=== PATIENT | female | born 1975 | race Caucasian/White ===

== ENCOUNTER → 2016-04-22 | Outpatient (CLI) | payer OTHER ==
--- NOTE | 2016-04-22 18:16 | US ---
Dear Dr. Hawthorne, Thank you for sending your patient, Ladi Motta, to us for an US and consultation to assess a natomy. As you know, the patient is a 40 y.o. G4, P1021 at 20 weeks and 3 days with an EDC of 09/06/16 based on LMP and 10 week US. Her is complicated by AMA>40 and hypothyroidism on Synthroid 50 mcg daily. Genetic Screening: NIPT and AFP reassuring The patient denies any uterine contractions, vaginal bleeding, or loss of fluid. Today, she is withou t complaints. US FINDINGS: Number of fetuses: 1 Placental location: Anterior, No previa Placental Cord Insertion: Central presentation: Breech Cervix: 4.4 cm, transabdominally MVP: 4.7 cm The adnexa were evaluated. No pathology was seen. Right ovary: Normal Left ovary: Suboptimal heart rate: 143 bpm Measurements: Biparietal diameter: 48 mm, 20 weeks 4 days Head circumference: 181 mm, 20 weeks 4 days Abdominal circumference: 155 mm, 20 weeks 5 days Femur length: 32 mm, 20 weeks 1 days Humerus length: 32 mm, 20 weeks 4 days Transcerebellar diameter: 23 mm, 21 weeks 5 days Average ultrasound age: 20 weeks 4 days Estimated weight: 353 g weight percentile: 45% ANATOMY Supratentorial brain: Normal Cerebral lateral ventricle: 5 mm Posterior fossa: Normal Cisterna magna: 4 mm Nuchal fold: 3.0 mm Lip: Normal Profile: Normal Alveolar Ridge: Suboptimal Spine: -- Cervical: Normal -- Thoracic: Normal -- Lumbar: Normal -- Sacral: Suboptimal Heart: -- 4 Chamber: Normal -- Intraventricular septum: Appears intact by Color and Spectral US -- Right Outflow Tract: Normal -- Left Outflow Tract: Normal -- 3 Vessel View: Suboptimal -- Aortic Arch: Normal -- Ductal Arch: Normal Diaphragm: Appears intact Stomach: Normal Abdominal Umbilical Cord Insertion: Normal Right kidney: Normal Left kidney: Normal Bladder: Normal Number of cord vessels: 3 Upper extremities: -- Right Arm: Normal -- Right Hand: Normal -- Left Arm: Normal -- Left Hand: Suboptimal Lower extremities: -- Right Leg: Normal -- Right Foot: Normal, no club foot -- Left Leg: Normal -- Left Foot: Normal, no club foot IMPRESSION: 1. Anatomy: The fetus measures appropriate for gestational age, measuring a normal weight and percen tile. Visualization of the fetus today reveals no overt structural anomalies. However, the sacral spi ne, 3VV, palate, and left hands were not well seen secondary to position. There is evidence of normal amniotic fluid, and movement was seen during the examination. - US in 4-6 weeks to reevaluate suboptimal anatomy 2. Genetic Screening: This patient has had reassuring NIPT results this . Today, no markers of aneuploidy were seen. While her screening and US results are reassuring, we reviewed that fe chely aneuploidy can only be definitively excluded with diagnostic testing via amniocentesis. After thi s discussion, the patient does not wish to proceed with invasive testing at this time. 3. Maternal Age >40 at Time of Delivery: We discussed the increased risk of preeclampsia, gestational diabetes, IUGR, and term IUFD. - Growth US at 28-32 weeks - Weekly NSTs and fluid checks starting at 36 weeks - Delivery by 40+0 weeks given term IUFD risk - Consider early Glucola with repeat at 26-28 weeks if normal - Close monitoring of blood pressures and urine protein in the third trimester Thank you again for sending this patient to see us today. Approximately 12 minutes of a total visit t chelly of 15 minutes were spent with this patient today in direct face to face counseling regarding reshma mary lou's US findings and the above recommendations. Please feel free to contact me with any questions at . Clarisse Orozco MD Maternal- Medicine
--- NOTE | 2016-04-23 08:53 | US ---
OB sonogram History: ROSHAN September 06, 2016, 20 weeks 3 days, check growth and anatomy, advanced maternal age, maternal thyroid dysfunction on Synthroid Comparison: none Findings: There is a single viable intrauterine gestation in breech presentation. The cervix is close d, measuring 4.4 cm transabdominally. The placenta is anterior without previa. The 3 vessel umbilical cord inserts normally into the central placenta. Maximum amniotic fluid pocket = 4.7 cm. The materna l right ovary is normal the maternal left ovary is not visualized. The visualized face, intracranial contents and spine look normal. The heart is 4 ch ambered and has a rate of 143 beats per minute. The right and left ventricular outflow tracks are nor mal. Fluid is identified in the stomach and urinary bladder. renal region looks nor mal. The umbilical cord insertion site is normal. Four extremities are present. BPD = 40 mm = 20 weeks 4 days Head circumference = 181 mm = 20 weeks 4 days Abdominal circumference = 155 mm = 20 weeks 5 days Femur length = 32 mm = 20 weeks 1 day Humeral length = 32 mm = 20 weeks 4 days Cerebellar width = 23 mm = 21 weeks 5 days Cisterna magna = 4.4 mm Estimated weight = 45 percentile Impression: The fetus is in breech presentation. Size consistent with dates. Normal anatomy. This report should be read in conjunction with the consultation by Dr. Clarisse Orozco.
== END ==
LOC: FIMAGING 08:10
PROVIDERS: ATTEND Obstetrics & Gynecology
DX: O09.522 Supervision of elderly multigravida, second trimester (principal); O99.282 Endocrine, nutritional and metabolic diseases complicating pregnancy, second trimester; E03.9 Hypothyroidism, unspecified; Z3A.20 20 weeks gestation of pregnancy

== ENCOUNTER 2016-05-28 15:10 | Observation (INO) | payer OTHER ==
[2016-05-28 16:45] LABS: % IMMATURE GRANULYOCYTES 1.2 % (0.0-1.1); ABSOLUTE IMMATURE GRANULOCYTES 0.14 10^3/uL (0.00-0.10); ADD DIFF? NO; ADD MORPH? NO; ADD SCAN? NO; ATYPICAL LYMPHOCYTE FLAG 0 (0-99); FRAGMENT RBC FLAG 0 (0-99); HEMATOCRIT 34.3 % (38.0-47.0); HEMOGLOBIN 11.8 g/dL (12.6-16.3); LEFT SHIFT FLG 10 (0-99); LIPEMIA HEMOLYSIS FLAG 90 (0-99); MEAN CELL HEMOGLOBIN 31.4 pg (27.9-34.1); MEAN CELL HEMOGLOBIN CONCENTR. 34.4 g/dL (32.4-36.7); MEAN CELL VOLUME 91.2 fL (81.5-99.8); MEAN PLATELET VOLUME 10.5 fL (8.7-11.7); PLATELET CLUMPS FLAG 0 (0-99); PLATELET COUNT 195 10^3/uL (150-400); RED BLOOD CELL COUNT 3.76 10^6/uL (4.18-5.33); RED CELL DISTRIBUTION WIDTH 13.6 % (11.5-15.2)
--- NOTE | 2016-05-28 18:12 | SOAPPROG ---
SOAP Progress Note Assessment/Plan: Assessment: 40 yo P1 @ 25 weeks gestation, s/p minor abdominal trauma, several hours ago, doing well. Plan: 05/28/16 18:08 FWB reassuring by US and monitoring. Will call if KB results are positive , however, if positive, management plan would continue the same which is monitor for vaginal bleeding, abdominal pain, contractions, loss of fluid. Plan on f/u appointment in two days. Subjective: 40 P1 @ 25 weeks presents for monitoring after tripping and falling this morning. She hit her knee and elbow and head as well as the side of her abdomen. The fetus has been moving throughout the day, she has had no vaginal bleeding or loss of fluid or abdominal pain. She does state her abdomen feels sore on the side. No major complications with this other than history of recurrent loss and advanced maternal age. Objective: Laboratory Results 05/28/16 16:19 VSS [place]-no contractions FHTs 150s, moderate variability, +accels, no decels Physical Exam - Physical Exam General Appearance: no apparent distress Abdomen: non-tender, soft, other (gravid) ICD10 Worksheet Patient Problems: Problems Problem Status Onset AMA (advanced maternal age) multigravida 35+ Acute GBS (group B Streptococcus carrier), +RV culture, currently Acute Oligohydramnios Acute
== END 2016-05-28 18:00 | disposition home or self-care (01) ==
LOC: FLD 15:10
PROVIDERS: ADMIT Obstetrics & Gynecology; ATTEND Obstetrics & Gynecology
DX: O9A.212 Injury, poisoning and certain other consequences of external causes complicating pregnancy, second trimester (principal); R10.9 Unspecified abdominal pain; O09.522 Supervision of elderly multigravida, second trimester; Z3A.23 23 weeks gestation of pregnancy
CPT/HCPCS: 76815; G0378

== ENCOUNTER → 2016-06-05 | Outpatient (CLI) | payer OTHER | LOC: FIMAGING 14:49 | PROVIDERS: ATTEND Obstetrics & Gynecology | DX: O09.522 Supervision of elderly multigravida, second trimester (principal); E03.9 Hypothyroidism, unspecified; Z3A.26 26 weeks gestation of pregnancy ==

== ENCOUNTER → 2016-07-22 | Outpatient (CLI) | payer OTHER | LOC: FIMAGING 14:42 | PROVIDERS: ATTEND Obstetrics & Gynecology | DX: O99.283 Endocrine, nutritional and metabolic diseases complicating pregnancy, third trimester (principal); O09.523 Supervision of elderly multigravida, third trimester; E03.9 Hypothyroidism, unspecified; Z3A.33 33 weeks gestation of pregnancy ==

== ENCOUNTER 2016-09-01 06:00 | Inpatient (IN) | payer OTHER ==
[2016-09-01] MEDS ORDERED: LR 1,000 ML IV PRN (06:44)
[2016-09-01] MEDS ORDERED: TERBUTALINE SULFATE 1 MG/ML VIAL IV PRN (06:44)
[2016-09-01] MEDS ORDERED: AMPICILLIN SODIUM 2 GM in NS 100 ML IV ONE ×2 (06:44→16:30)
[2016-09-01] MEDS ORDERED: EPSOM SALT 454 GM TP PRN (06:44)
[2016-09-01] MEDS ORDERED: OLIVE OIL 118 ML BTL MISC PRN (06:44)
[2016-09-01] MEDS ORDERED: OXYTOCIN/RINGERS LACTATE 1,000 ML IV PRN (06:44)
[2016-09-01] MEDS ORDERED: LIDOCAINE 1% 30 ML SDV SC PRN (06:44)
[2016-09-01] MEDS ORDERED: OXYTOCIN/LR *STANDARD DOSE PROTOCOL IV SCH (07:00)
[2016-09-01 07:03] LABS: % IMMATURE GRANULYOCYTES 1.5 % (0.0-1.1); ABSOLUTE IMMATURE GRANULOCYTES 0.16 10^3/uL (0.00-0.10); ADD DIFF? NO; ADD MORPH? NO; ADD SCAN? NO; ATYPICAL LYMPHOCYTE FLAG 10 (0-99); FRAGMENT RBC FLAG 0 (0-99); HEMATOCRIT 37.3 % (38.0-47.0); HEMOGLOBIN 12.9 g/dL (12.6-16.3); LEFT SHIFT FLG 0 (0-99); LIPEMIA HEMOLYSIS FLAG 90 (0-99); MEAN CELL HEMOGLOBIN 31.9 pg (27.9-34.1); MEAN CELL HEMOGLOBIN CONCENTR. 34.6 g/dL (32.4-36.7); MEAN CELL VOLUME 92.1 fL (81.5-99.8); MEAN PLATELET VOLUME 12.6 fL (8.7-11.7); PLATELET CLUMPS FLAG 10 (0-99); PLATELET COUNT 122 10^3/uL (150-400); RED BLOOD CELL COUNT 4.05 10^6/uL (4.18-5.33); RED CELL DISTRIBUTION WIDTH 14.4 % (11.5-15.2)
[2016-09-01] MEDS ORDERED: LIDOCAINE 1% 30 ML SDV ONE (07:54)
[2016-09-01] MEDS ORDERED: OLIVE OIL 118 ML BTL ONE (07:54)
[2016-09-01] MEDS ORDERED: AMMONIA AROMATIC 1 EACH AMP IH ONE (07:54)
[2016-09-01] MEDS ORDERED: MISOPROSTOL 200 MCG TAB ONE (07:55)
[2016-09-01] MEDS ORDERED: OXYTOCIN 10 UNIT/ML VIAL ONE (07:55)
[2016-09-01] MEDS ORDERED: TERBUTALINE SULFATE 1 MG/ML VIAL ONE (07:55)
--- NOTE | 2016-09-01 08:40 | OBPROG ---
OBG Progress Note Assessment/Plan: Assessment: 40 yo @ 39 2, IOL for AMA over 40. Plan: 09/01/16 08:38 FWB reassuring. GBS positive, s/p one dose abx. Epidural as desired. Subjective: Does not feel significant contractions, would like an epidural. Objective: 09/01/16 06:38 Patient ABO/Rh B POSITIVE 09/01/16 06:38 vss - SVE Dilation (cm): 2 Effacement (%): 50 Station: -2 Current Contraction Pattern: Irregular FHR (bpm): 130 FHR Pattern Variability: Moderate FHR Category: 2 Membranes: AROM Amniotic Fluid Color: Clear ICD10 Worksheet Patient Problems: Problems Problem Status Onset Advanced maternal age (AMA), 40 years or greater Acute AMA (advanced maternal age) multigravida 35+ Acute Oligohydramnios Acute GBS (group B Streptococcus carrier), +RV culture, currently Acute
[2016-09-01] MEDS ORDERED: fentaNYL 2MCG/ML/BUP 0.1% RTU 100 ML BAG EP ONE (11:08)
[2016-09-01] MEDS ORDERED: BUPIVACAINE 0.25% 30 ML SDV ONE (11:08)
[2016-09-01] MEDS ORDERED: fentaNYL 100 MCG/2 ML INJ ONE (11:08)
[2016-09-01] MEDS ORDERED: PHENYLEPHRINE HCL 100 MCG/ML SYR ONE (11:08)
--- NOTE | 2016-09-01 13:00 | OBPROG ---
OBG Progress Note Assessment/Plan: Assessment: 40 yo @ 39 2/7, IOL for AMA over 40. Plan: FWB reassuring. GBS positive, s/p two doses abx. Expect . 09/01/16 12:58 Subjective: 40 yo @ 39 2/7, IOL for AMA over 40. Objective: 09/01/16 06:38 Patient ABO/Rh B POSITIVE 09/01/16 06:38 VSS - SVE Dilation (cm): 7 Effacement (%): 100 Station: 0 Current Contraction Pattern: Regular FHR (bpm): 130 FHR Pattern Variability: Moderate FHR Category: 2 Membranes: AROM Amniotic Fluid Color: Clear ICD10 Worksheet Patient Problems: Problems Problem Status Onset Advanced maternal age (AMA), 40 years or greater Acute AMA (advanced maternal age) multigravida 35+ Acute GBS (group B Streptococcus carrier), +RV culture, currently Acute Oligohydramnios Acute
[2016-09-01] MEDS ORDERED: HEMABATE 250 MCG/1 ML AMP IM ONE (13:14)
[2016-09-01] MEDS ORDERED: METHYLERGONOVINE MAL 0.2 MG/ML INJ ONE (13:14)
[2016-09-01] MEDS ORDERED: PHENYLEPHRINE HCL 100 MCG/ML SYR IVP PRN (13:55)
[2016-09-01] MEDS ORDERED: ONDANSETRON 4 MG/2 ML VIAL IVP PRN (13:55)
--- NOTE | 2016-09-01 13:58 | POSTANESTH ---
Post Anesthetic Evaluation Cardiovascular Status: Normal, Stable Respiratory Status: Normal, Stable, Similar to Pre-op Cond. Level of Consciousness/Mental Status: Can Participate in Eval, Alert and Oriented (Tolerated CSE well, stable after phenylephrine x 1, comfortable.) Pain Control: Adequate, Prn Tx Ordered Nausea/Vomiting Control: Adequate, Prn Tx Ordered Complications Possibly Related to Anesthesia: None Noted
[2016-09-01] MEDS ORDERED: LR 500 ML IV SCH (14:00)
[2016-09-01] MEDS ORDERED: fentaNYL 2MCG/ML/BUP 0.1% RTU 100 ML EP SCH (14:00)
--- NOTE | 2016-09-01 14:02 | PREANESOB ---
Obstetric Pre-Anesthesia Info - General Info Proposed Procedure: Labor and delivery jeannette higgins. : 4 Para: 1 WBD: 39 - Info Status: Full Term Monitors: External FHR Baseline (bpm): 140 FHR Pattern: Reassuring - Labor Status Cervical Dilation per last OB SVE: 7 Station per last OB SVE: 0 Amniotic Fluid Color: Clear Pitocin: In Use Indications for Labor Analgesia: Induction of Labor, Pain Control Anesthesia ROS: Induction for advanced maternal age. Prior labor epidural with difficulty. Allergies/Adverse Reactions: Allergy/AdvReac Type Severity Reaction Status Date / Time No Known Allergies Allergy Unverified 06/14/12 09:26 Home Medications: Medication Instructions Recorded Calcium [HI-IKE] 1 tab PO DAILY20 06/23/13 Magnesium Oxide [Magnesium] 1 cap PO DAILY20 06/23/13 Vit27&Calcium/Iron/FA 1 tab PO DAILY20 06/23/13 [] Visit Medications: Generic Name Dose Route Start Last Admin Trade Name Freq PRN Reason Stop Dose Admin Diphenhydramine HCl 25 - 50 mg 09/01/16 13:55 Benadryl Injection IVP 02/28/17 13:54 Q6HRS PRN Itching Ampicillin Sodium 1 gm/ Sodium 100 mls @ 200 mls/hr 09/01/16 10:48 Chloride IV 10/01/16 10:47 Q4H CAROL Protocol Lactated Ringer's 1,000 mls @ 0 mls/hr 09/01/16 06:44 Lr IV 02/28/17 06:43 PRN PRN SEE PROTOCOL CONDITIONS Protocol Per Protocol Oxytocin/Lactated Ringer's 1,000 mls @ 150 mls/hr 09/01/16 06:44 Pitocin 20 Units/Lr (Premix) IV PRN PRN Post- bleeding Oxytocin/Lactated Ringer's 500 mls @ 0 mls/hr 09/01/16 07:00 09/01/16 07:47 Pitocin 30 Units/Lr (Premix) IV 02/28/17 06:59 500 mls CONT CAROL Administration Protocol Per Protocol Fentanyl/Bupivacaine HCl 100 mls @ 0 mls/hr 09/01/16 14:00 Fentanyl/Bupivacaine/Ns 2 Mcg/Ml 0.1% (Premix EP 09/11/16 13:59 CONT CAROL Protocol As Directed Lactated Ringer's 500 mls @ 0 mls/hr 09/01/16 14:00 Lr IV 02/28/17 13:59 CONT CAROL As Directed Ibuprofen 600 mg 09/01/16 06:44 Motrin PO 02/28/17 06:43 Q6HRS PRN post , inflammation Lidocaine HCl 30 ml 09/01/16 06:44 Lidocaine Hcl 1% SC 02/28/17 06:43 ONCE PRN Episiotomy Magnesium Sulfate 454 gm 09/01/16 06:44 Epsom Salt TP 02/28/17 06:43 PRN PRN perineal discomfort [place] Oil 118 ml 09/01/16 06:44 Sweet Oil MISC 02/28/17 06:43 ONCE PRN preneal massage Ondansetron HCl 4 mg 09/01/16 13:55 Zofran IVP 02/28/17 13:54 Q4HRS PRN Nausea/Vomiting, Can't Take PO Phenylephrine HCl 100 mcg 09/01/16 13:55 Amari-Synephrine IVP 02/28/17 13:54 .Q2M PRN Hypotension Terbutaline Sulfate 0.25 mg 09/01/16 06:44 Brethine IV 02/28/17 06:43 ONCE PRN Tachysystole Discontinued Medications Generic Name Dose Route Start Last Admin Trade Name Jesus PRN Reason Stop Dose Admin Ammonia (Aromatic Spirit) Confirm 09/01/16 07:54 Ammonia Aromatic Administered 09/01/16 07:55 Dose 1 each IH .STK-MED ONE Bupivacaine HCl Confirm 09/01/16 11:08 Sensorcaine 0.25% Sdv Administered 09/01/16 11:09 Dose 30 ml .ROUTE .STK-MED ONE Carboprost Tromethamine Confirm 09/01/16 13:14 Hemabate Administered 09/01/16 13:15 Dose 250 mcg IM .STK-MED ONE Ephedrine Sulfate Confirm 09/01/16 07:55 Ephedrine Sulfate Administered 09/01/16 07:56 Dose 50 mg .ROUTE .STK-MED ONE Fentanyl Confirm 09/01/16 11:08 Sublimaze Administered 09/01/16 11:09 Dose 100 mcg .ROUTE .STK-MED ONE Fentanyl/Bupivacaine HCl Confirm 09/01/16 11:08 Fentanyl/Bupivacaine/Ns 2 Mcg/Ml 0.1% (Premix Administered 09/01/16 11:09 Dose 100 ml EP .STK-MED ONE Ampicillin Sodium 2 gm/ Sodium 110 mls @ 220 mls/hr 09/01/16 06:44 09/01/16 09:07 Chloride IV 09/01/16 07:13 110 mls ONCE ONE Administration Protocol Lidocaine HCl Confirm 09/01/16 07:54 Lidocaine Hcl 1% Administered 09/01/16 07:55 Dose 30 ml .ROUTE .STK-MED ONE Methylergonovine Maleate Confirm 09/01/16 13:14 Methergine Administered 09/01/16 13:15 Dose 0.2 mg .ROUTE .STK-MED ONE Misoprostol Confirm 09/01/16 07:55 Cytotec Administered 09/01/16 07:56 Dose 800 mcg .ROUTE .STK-MED ONE [place] Confirm 09/01/16 07:54 Sweet Oil Administered 09/01/16 07:55 Dose 118 ml .ROUTE .STK-MED ONE Oxytocin Confirm 09/01/16 07:55 Pitocin Administered 09/01/16 07:56 Dose 40 unit .ROUTE .STK-MED ONE Phenylephrine HCl Confirm 09/01/16 11:08 Amari-Synephrine Administered 09/01/16 11:09 Dose 1,000 mcg .ROUTE .STK-MED ONE Terbutaline Sulfate Confirm 09/01/16 07:55 Brethine Administered 09/01/16 07:56 Dose 1 mg .ROUTE .STK-MED ONE - Anesthesia History Response to Local Anesthetics: Normal Anesthesia & Operative History: Prob w/Prior Anesthesia - Social History Substance Use/Abuse: Denies (Difficulty getting desired analgesia with previous epidural.) - Focused Exam Blood Pressure: 111/58 Heart Rate: 99 Respiratory Rate: 18 Height/Weight (Nursing): Height 165.1 cm Weight 74.843 kg Physical Exam: Within normal limits. ASA Status: II Labs: 09/01/16 06:38 Patient ABO/Rh B POSITIVE 09/01/16 06:38 - Plan Anesthetic Plan: CSE Consent Signed and on Chart: Yes Patient/Guardian Understands and Agrees to Plan: Yes
[2016-09-01] MEDS ORDERED: HYDROCODONE/APAP 5/325 TAB PO PRN (14:50)
[2016-09-01] MEDS ORDERED: HYDROCORTISONE 0.5% CREAM TP PRN (14:50)
[2016-09-01] MEDS ORDERED: SIMETHICONE 80 MG TAB CHEW PO PRN (14:50)
--- NOTE | 2016-09-01 14:50 | OBPROC ---
- Labor and Delivery Onset of Contractions Date: 09/01/16 Onset of Contractions Time: 08:00 Onset of Contractions Type: Induced Rupture of Membranes Date: 09/01/16 Rupture of Membranes Time: 08:30 Rupture of Membranes Type: Artificial Amniotic Fluid Color: Clear Dilation Complete Time: 13:15 Delivery Type: Spontaneous Placenta Delivery Date: 09/01/16 EBL: 800 ml Complications: Post Hemorrhage, Other (Specify) (retained placenta requiring manual extraction and banjo curette, US at end of procedure showed clear endometrial stripe) - Medications Labor Augmentation/Induction Meds Used: Pitocin Labor Augmentation/Induction Indication: Other (Specify) (advanced maternal age , elective) Anesthesia: Epidural - Info Infant A Delivery Date: 09/01/16 Delivery Time: 13:29 Sex of : Female Score (1 Min): 8 Score (5 Min): 9 (The patient has a significant history of retained placenta with her first . After 10 minutes after delivery of the infant, the placenta was showing no signs of delivery. Manual extraction revealed an adherent placenta, requiring banjo curette for complete removal. The patient received pitocin, methergine, hemabate and cytotec during delivery for uterine atony. US was done to confirm no retained placenta.)
[2016-09-01] MEDS ORDERED: METHYLERGONOVINE MAL 0.2 MG/ML INJ IM ONE (14:51)
[2016-09-01] MEDS ORDERED: MISOPROSTOL 200 MCG TAB PR ONE (14:51)
[2016-09-01] MEDS ORDERED: HEMABATE 250 MCG/1 ML AMP IM PRN (14:52)
[2016-09-01] MEDS ORDERED: DIPHENOXYLATE/ATROPINE LOMOTIL 1 TAB PO PRN (14:53)
[2016-09-01] MEDS: IBUPROFEN 600 MG TAB PO PRN (16:11)
[2016-09-01] MEDS ORDERED: ACETAMINOPHEN 500 MG TAB PO ONE (16:45)
[2016-09-01] MEDS ORDERED: GENTAMICIN SULFATE 300 MG in D5W 100 ML IV ONE (17:12)
[2016-09-01] MEDS ORDERED: ACETAMINOPHEN 500 MG TAB PO PRN (18:07)
--- NOTE | 2016-09-01 18:10 | SOAPPROG ---
SOAP Progress Note Assessment/Plan: Assessment: 40 yo S/P with manual extraction of placenta due to retained placenta, now with fever, likely endometritis Plan: Bleeding stable, will check HCT in am. Amp/Gent for probable endometritis, will add clindamycin if continues to have a fever. 09/01/16 18:08 Subjective: 40 yo S/P with manual extraction of placenta due to retained placenta, now with fever, likely endometritis-feels tired, no signficant pain. Objective: Vital Signs Temp Pulse Resp BP Pulse Ox 99 18 111/58 L 09/01/16 14:04 09/01/16 14:04 09/01/16 14:04 Laboratory Results 09/01/16 06:38 VSS Physical Exam - Physical Exam Abdomen: non-tender, other (uterus firm, 4 cm below umbilicus) ICD10 Worksheet Patient Problems: Problems Problem Status Onset Advanced maternal age (AMA), 40 years or greater Acute AMA (advanced maternal age) multigravida 35+ Acute GBS (group B Streptococcus carrier), +RV culture, currently Acute Oligohydramnios Acute
[2016-09-01] MEDS: AMPICILLIN SODIUM 1 GM in NS 100 ML IV SCH (20:01)
[2016-09-01] MEDS ORDERED: AMPICILLIN SODIUM 2 GM in NS 100 ML IV SCH (20:30)
[2016-09-01] MEDS: AMPICILLIN SODIUM 2 GM in NS 100 ML IV SCH (22:14)
[2016-09-02] MEDS: DOCUSATE SODIUM 100 MG CAP PO PRN ×3 (00:02→22:22)
[2016-09-02] MEDS: IBUPROFEN 600 MG TAB PO PRN ×4 (00:02→22:22)
[2016-09-02] MEDS: AMPICILLIN SODIUM 2 GM in NS 100 ML IV SCH ×2 (04:54→10:22)
[2016-09-02] MEDS ORDERED: LACTULOSE 20 GM/30 ML UDCUP PO PRN (08:00)
[2016-09-02] MEDS ORDERED: POLYETHYLENE GLYCOL 3350 17 GM PKT PO PRN (08:00)
[2016-09-02] MEDS ORDERED: BISACODYL 10 MG SUPP PR PRN (08:00)
[2016-09-02] MEDS ORDERED: MAGNESIUM HYDROXIDE 30 ML UDCUP PO PRN (08:00)
--- NOTE | 2016-09-02 08:06 | SOAPPROG ---
SOAP Progress Note Assessment/Plan: Assessment: 40 y.o. female s/p with manual removal of placenta and endometritis. [place] and IV remains in place. Reports good pain control and minimal vaginal bleeding. Reports increased movement in her legs and was able to be out of bed to bathroom. Plan: Routine care. consult. D/C [place] and encourage ambulation. BC IV after last dose of ampicillin. Continue to monitor for S&S of infection. 09/02/16 08:01 Subjective: Reports feeling fatigued with good pain control. Minimal vaginal bleeding. Reports noticing increased sensation in her legs and has been able to ambulate to bathroom. Eating and drinking well without nausea or vomiting. Appropriate mood with good support system. Objective: Vital Signs Temp Pulse Resp BP Pulse Ox 36.6 C 80 20 94/59 L 93 09/02/16 00:10 09/02/16 00:10 09/02/16 00:10 09/02/16 00:10 09/02/16 00:10 Laboratory Results 09/02/16 04:58 09/01/16 09/02/16 09/03/16 05:59 05:59 05:59 Intake Total 1110 Output Total 3350 1600 Balance -2240 -1600 - Time Spent With Patient Time Spent With Patient: 20 minutes - Pending Discharge Pending Discharge Within 24 Hours: Yes Pending Discharge Date: 09/03/16 Pending Discharge Time: 11:00 Physical Exam - Physical Exam General Appearance: WD/WN, alert, no apparent distress EENT: normal ENT inspection Neck: non-tender, full range of motion, normal inspection Respiratory: lungs clear, normal breath sounds Cardiac/Chest: regular rate, rhythm Abdomen: non-tender, soft Pelvic Exam: normal external exam Rectal: deferred Back: Normal inspection Skin: normal color, warm/dry Lymphatic: no adenopathy Extremities: normal range of motion, non-tender, normal inspection Neuro/Psych: alert, normal mood/affect, oriented x 3 ICD10 Worksheet Patient Problems: Problems Problem Status Onset Advanced maternal age (AMA), 40 years or greater Acute AMA (advanced maternal age) multigravida 35+ Acute GBS (group B Streptococcus carrier), +RV culture, currently Acute Oligohydramnios Acute
[2016-09-02] MEDS: IRON POLYSAC/IRON HEME 28 MG TAB PO SCH ×2 (10:27→22:22)
[2016-09-02 10:30] VITALS: RESP 18
[2016-09-03] MEDS: IBUPROFEN 600 MG TAB PO PRN (08:30)
--- NOTE | 2016-09-03 10:27 | OBGCSDC ---
General Delivery Information - General Info : 4 Para: 2 Delivery Physician/CNM: Violeta Hawthorne Admission Date: 08/31/16 Labs: Patient ABO/Rh B POSITIVE 09/01/16 06:38 Hct 27.0 % (38.0-47.0) L D 09/02/16 04:58 Vaginal - Diagnosis IUP (Weeks): 39 2/7 Labor: Induced Rupture of Membranes Type: Artificial Amniotic Fluid Color: Clear Complications: Post Hemorrhage, Other (Specify) (retained placenta requiring manual extraction and banjo curette, US at end of procedure showed clear endometrial stripe) - Operations/Procedures Delivery Type: Spontaneous Procedures: Amniotomy Anesthesia: Epidural - Delivery EBL: 800 ml Anesthesia: Epidural Discharge Information - Discharge Information Discharge Medications: Ibuprofen, Iron, Vitamins, Vicodin Condition: Good Instruction/Follow Up: Six Weeks Discharge Physician/CNM: Rachana Trejo Discharge Date: 09/03/16 Dictated: No
[2016-09-03 12:01] VITALS: BP 107/61; PULSE 84; TEMP 98; O2SAT 93
[2016-09-03] MEDS: IRON POLYSAC/IRON HEME 28 MG TAB PO SCH (12:02)
--- NOTE | 2016-09-09 12:28 | PQFORM ---
PHYSICIAN QUERY FORM Needs Your Response This query form is being sent to you to assure this patient record is coded properly. Please respond to the question below: COUNTRY MANAGER QUESTION: Rachana, In the progress notes on this patient, it is mentioned that she had endometritis. Can this diagnosis be added to the discharge diagnoses? Yes No Other Thank you, Nina Street, HOME THERAPY TEACHER HIM Coding [id number] INSTRUCTIONS FOR RESPONSE: Answer question by clicking on the "Edit Document" button. Move cursor to area below the stars. When complete, hit "Save." Click on the "Sign" button, then click "Sign" again. Type in your PIN and hit "Enter." MTDD
--- NOTE | 2016-09-22 14:43 | PQFORM ---
PHYSICIAN QUERY FORM Needs Your Response This query form is being sent to you to assure this patient record is coded properly. Please respond to the question below: [employer]AR/[employer]EWABLE EN[employer]GY SALES QUESTION: Dr. Hawthorne. In the progress notes on this patient, it is mentioned that she had endometritis. Can this diagnosis be added to the discharge diagnoses on the discharge summary? Yes __x No Other Thank you, CYRUS Puga HIM Coding [id number] INSTRUCTIONS FOR RESPONSE: Answer question by clicking on the "Edit Document" button. Move cursor to area below the stars. When complete, hit "Save." Click on the "Sign" button, then click "Sign" again. Type in your PIN and hit "Enter." MTDD
== END 2016-09-03 12:00 | disposition home or self-care (01) | DRG 767 ==
LOC: FLD 06:05 → FOB 18:44
PROVIDERS: ADMIT Obstetrics & Gynecology; ATTEND Obstetrics & Gynecology
DX: O72.0 Third-stage hemorrhage (principal); O86.12 Endometritis following delivery; O99.820 Streptococcus B carrier state complicating pregnancy; Z37.0 Single live birth; Z3A.39 39 weeks gestation of pregnancy
CPT/HCPCS: J0290; J2210; J2370; J2590; J3010; J3105

== ENCOUNTER → 2018-02-11 | Outpatient (CLI) | payer OTHER | LOC: FIMAGING 14:43 | PROVIDERS: ATTEND Obstetrics & Gynecology | DX: Z12.31 Encounter for screening mammogram for malignant neoplasm of breast (principal); Z80.3 Family history of malignant neoplasm of breast ==